=== PATIENT | male | born 1940 | race Caucasian/White ===

== ENCOUNTER 2019-03-17 11:45 | Emergency (ER) | payer MEDICARE, BC, SELFPAY ==
[2019-03-17 11:50] VITALS: BP 127/82; PULSE 83; RESP 20; TEMP 36.8; O2SAT 96
--- NOTE | 2019-03-17 12:17 | W.ED.GENAD ---
Discharge Plan Disposition Patient Disposition: HOME Condition: Stable Discharge Details Chief Complaint: Orthopedic Clinical Impression: Subconjunctival hemorrhage, Left ankle sprain ED Provider: Aris Prasad Home Meds and New Rx's Prescriptions: New latanoprost 0.005 % drops 1 drp OP DAILY Qty: 7.5 RF: 0 Continued atorvastatin 10 mg Tablet PO DAILY RF: 0 montelukast [Singulair] 10 mg Tablet 10 mg PO DAILY RF: 0 hydrochlorothiazide 25 mg Tablet PO DAILY RF: 0 finasteride 5 mg Tablet 1 mg PO DAILY RF: 0 Asmanex HFA 100 mcg/actuation Hfa Aerosol Inhaler 1 puff INHALATION PRN PRNRF: 0 No Action latanoprost 0.005 % Drops 1 drp OPHTHALMIC (EYE) DAILY RF: 0 Discharge Instructions Instructions: Ankle Sprain (ED) Medical Decision Making 79 yo male states that he tripped in a small hole with left ankle and it rolled, did not fall or hit head or have loc. HAs mid ankle pain since so came here for an evaluation. He has full rom, no swelling and is bearing weight without a limp with intact sensation and pulses. Doubt fx suspect sprain, discussed with pt xray but he declined at this time which I feel is reasonable given exam, advised f/u with pcp if not better in a week for this. Also noted right eye redness this morning, no pain or vision changes, 20/20 vision with glassess. Has what apperas to be subconjunctival hemorrhage of right lateral eye. PERRL, eomi without deep eye pain. Advised this should resolve on it's own and to see pcp/pediatric clinical nurse specialist if not better in a week for this or return if worsening. HE is here on vacation until next week and forgot his latanoprost drops, will rpescribe this for him Differential Diagnosis suboncjunctival hemorrhage, ankle sprain HPI General Mode of arrival: ambulatory. Date/Time Provider Initiated Documentation: 03/17/19 11:54. Limitations to Documentation: no limitations. Information obtained by: patient. History of Present Illness 79 year old M presents to the emergency department with the chief complaint of left ankle pain, described as moderate, Quality is described as aching, Patient started experiencing this day(s) (1) and it has been constant. No relieving factors improve symptom(s), No exacerbating factors reported . Patient did receive the following treatments prior to arrival, none Related Data Home Medications Medication Instructions Recorded Confirmed Asmanex HFA 1 puff INHALATION PRN PRN 03/17/19 03/17/19 atorvastatin mg PO DAILY 03/17/19 finasteride 1 mg PO DAILY 03/17/19 03/17/19 hydrochlorothiazide mg PO DAILY 03/17/19 latanoprost 1 drp OP DAILY #7.5 ml 03/17/19 latanoprost 1 drp OPHTHALMIC (EYE) DAILY 03/17/19 03/17/19 montelukast [Singulair] 10 mg PO DAILY 03/17/19 03/17/19 Previous Rx's Medication Instructions Recorded latanoprost 1 drp OP DAILY #7.5 ml 03/17/19 Allergies Allergy/AdvReac Type Severity Reaction Status Date / Time Penicillins Allergy Unverified 03/17/19 11:52 General Stated Complaint: Orthopedic JODI: 3 Review of Systems Review of Systems All systems reviewed & are unremarkable except as noted in HPI and below Constitutional Denies chills, Denies fever(s) and Denies weakness Cardiovascular Denies chest pain and Denies dyspnea Respiratory Denies cough and Denies dyspnea Gastrointestinal Denies abdominal pain, Denies nausea and Denies vomiting Musculoskeletal Denies joint swelling Neurologic Denies weakness [facility] Medical History (Updated 03/17/19 @ 11:57 by Celia Elmore) Asthma (Chronic) BPH (benign prostatic hyperplasia) (Chronic) Cataract (Chronic) Glaucoma (Chronic) Hypercholesteremia (Acute) Hypertension (Chronic) Social History Smoking/Tobacco Use Status: Former Tobacco Use Alcohol Intake: current Alcohol Intake frequency: holidays/special occasions only Substance use type: does not use Do you feel safe at home: Yes Do you feel safe in your relationship?: Yes Exam Const General: no acute distress Orientation: alert HENMT Head: normal to inspection Ears: external ears normal General nose exam: external nose normal Mouth: moist mucous membranes Neck Neck: normal visual inspection Resp Effort & Inspection: normal respiratory effort and able to speak in complete sentences Cardio Rate: regular rate Skin General skin exam: no rashes or lesions noted Neuro General: alert and oriented x3 Extrem General: normal to inspection Psych Mental Status: mental status grossly normal Course Vital Signs Temperature 36.8 C 03/17/19 11:50 Pulse 83 03/17/19 11:50 Respiratory Rate 20 03/17/19 11:50 Blood Pressure 127/82 03/17/19 11:50 Pulse Oximetry 96 03/17/19 11:50 Temperature 36.8 C 03/17/19 11:50 Temperature Source Temporal Artery Scan 03/17/19 11:50 Pulse 83 03/17/19 11:50 Respiratory Rate 20 03/17/19 11:50 Respiratory Effort Non-Labored 03/17/19 11:55 Blood Pressure 127/82 03/17/19 11:50 Blood Pressure Position Sitting 03/17/19 11:50 Pulse Oximetry 96 03/17/19 11:50 Oxygen Delivery Method Room Air 03/17/19 11:50 Oxygen Flow Rate 0 03/17/19 11:50 Pain Level 2 03/17/19 11:55
[2019-03-17 12:25] VITALS: BP 127/82; PULSE 83; RESP 20; TEMP 36.8; O2SAT 96
== END 2019-03-17 12:26 | disposition home or self-care (01) ==
LOC: ER 12:50
PROVIDERS: Emergency Provider Emergency Medicine
DX: H11.30 Conjunctival hemorrhage, unspecified eye (principal); S93.402A Sprain of unspecified ligament of left ankle, initial encounter; W17.2XXA Fall into hole, initial encounter; X50.9XXA Other and unspecified overexertion or strenuous movements or postures, initial encounter; I10 Essential (primary) hypertension
CPT/HCPCS: 99283